=== PATIENT | male | born 2000 | race Caucasian/White ===

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

== ENCOUNTER 2021-09-14 13:04 | Outpatient (CLI) | payer OTHER, SELFPAY ==
--- NOTE | ~2021-09-14 | MMUS_ITS ---
EXAMINATION: MM diagnostic mammo unilat LT, US breast LT limited HISTORY: Asymmetric left medial breast development. Left breast lump behind the nipple. TECHNIQUE: Digital diagnostic left mammogram. Comparison right MLO view performed. High resolution Li mited left breast ultrasound was performed. COMPARISON: None BREAST PARENCHYMAL COMPOSITION: Breast composed of scattered areas of fibroglandular density FINDINGS: MAMMOGRAPHIC FINDINGS: There is bilateral asymmetric gynecomastia. No suspicious masses, calcifications or architectural dis tortion in either breast to suggest malignancy. ULTRASOUND: Limited left breast ultrasound: There is a hypoechoic subareolar left breast bud, compatible with mannequin mold maker ecomastia. No suspicious masses to suggest malignancy. IMPRESSION: 1. No evidence for left breast malignancy. Benign bilateral asymmetric gynecomastia. Recommend follow -up clinical management for gynecomastia. BI-RADS CATEGORY 2 - BENIGN FINDINGS Reviewed, dictated and finalized at location A. MEAT CHEF IMPRESSION: 1. No evidence for left breast malignancy. Benign bilateral asymmetric gynecoma stia. Recommend follow-up clinical management for gynecomastia. BI-RADS CATEGORY 2 - BENIGN FINDINGS
== END 2021-09-14 13:05 | disposition home or self-care (01) ==
PROVIDERS: PCP Pediatrics; Visit Provider Pediatrics
DX: N62 Hypertrophy of breast (principal)
CPT/HCPCS: 76642; 77065

== ENCOUNTER 2022-12-01 18:53 | Emergency (ER) | payer OTHER, SELFPAY ==
--- NOTE | ~2022-12-01 | XR_ITS ---
EXAMINATION: XR ankle RT min 3V INDICATION: Right ankle pain TECHNIQUE: Four views of the right ankle are obtained. COMPARISON: None available FINDINGS: No fracture, dislocation, or subluxation. The bones and joint spaces are normal. There is l ateral ankle soft tissue swelling. IMPRESSION: 1. No acute osseous abnormality. Reviewed, dictated and finalized at location F.
--- NOTE | ~2022-12-01 | XR_ITS ---
EXAMINATION: XR foot RT min 3V DATE: 12/01/2022 19:28 INDICATION: Right foot pain TECHNIQUE: Dorsoplantar, lateral, and 2 oblique views of the right foot were obtained. COMPARISON: None. FINDINGS: Bone alignment is normal. There is no fracture. There is lateral soft tissue swelling of an kle and foot. IMPRESSION: 1. No acute osseous abnormality. Reviewed, dictated and finalized at location F.
[2022-12-01 19:06] VITALS: BP 134/67; PULSE 117; RESP 16; TEMP 37.5; O2SAT 98
--- NOTE | 2022-12-01 19:16 | ED.LOWEXIN ---
HPI - Extremity Injury (Lower) General Chief Complaint: Extremity Injury, Lower Stated Complaint: INJURED ANKLE Source: patient, family and RN notes reviewed History of Present Illness HPI Narrative: 22-year-old male presents to urgent care with mom at side. Patient states prior to arrival he was playing basketball when he jumped up and came down, landing on another person's foot. Patient believes he rolled his right ankle and heard a pop at that time. Patient also states when he fell backwards he heard a pop again. Pt presents with right lateral and anterior ankle pain. Denies any other injuries including head injury or LOC. denies any numbness or tingling. Some parts of this dictation were generated by voice recognition software and may contain typographical and/or grammatical inaccuracies. Related Data Home Medications Medication Instructions Recorded Confirmed No Home Medications 12/20/20 12/20/20 Allergies Allergy/AdvReac Type Severity Reaction Status Date / Time No Known Allergies Allergy Verified 12/01/22 19:17 Review of Systems Review of Systems: CONSTITUTIONAL: Denies fever, chills, or sweats. EYES: Denies visual changes, redness, or discharge. ENT: Denies otalgia and sore throat CARDIOVASCULAR: Denies chest pain, palpitations, or edema. RESPIRATORY: Denies cough or dyspnea. GASTROINTESTINAL: Denies abdominal pain, nausea, vomiting, or diarrhea. GENITOURINARY: Denies dysuria or hematuria. SKIN: Denies rash or itching. MUSCULOSKELETAL: Right ankle pain and swelling NEUROLOGIC: Denies headache, numbness, or weakness. Pertinent positives per HPI. PMFSH Social History Social History (Updated 06/16/21 @ 08:23 by Citlaly Bello MA) Smoking status: Never smoker Alcohol intake: never Substance use: never Comments At the time of my signature, I reviewed and agree with the nursing past medical, surgical, social, and family history. There is no relevant family history pertinent to the patient complaint. Exam Narrative: GENERAL: This is a well-nourished, well-developed patient, in no apparent distress. HEAD: normocephalic, atraumatic. EYES: Sclera clear/white. Vision is grossly intact. EARS: External ears normal, auditory canals clear and without drainage. Hearing grossly intact. CARDIOVASCULAR: Regular rate RESPIRATORY: No respiratory distress SKIN: warm, intact with no suspicious lesions or rash, good texture and turgor. NEURO: awake, alert, and oriented to person, place and time. There were no obvious focal neurologic abnormalities. EXTREMITIES: Right lateral ankle swelling and tenderness. Slight tenderness to anterior ankle. Course Course Level of Care: Express Care Visit Vital Signs Vital signs: Vital Signs Temperature 99.5 F 12/01/22 19:06 Pulse Rate 117 H 12/01/22 19:06 Respiratory Rate 16 12/01/22 19:06 Blood Pressure 134/67 12/01/22 19:06 Pulse Oximetry 98 12/01/22 19:06 Oxygen Delivery Room Air 12/01/22 19:06 Temperature 99.5 F 12/01/22 19:06 Pulse Rate 117 H 12/01/22 19:06 Respiratory Rate 16 12/01/22 19:06 Blood Pressure 134/67 12/01/22 19:06 Pulse Oximetry 98 12/01/22 19:06 Oxygen Delivery Room Air 12/01/22 19:06 Reviewed. MDM - Extremity Injury (Lower) MDM Narrative Medical decision making narrative: Use the RICE method at home. May take ibuprofen and/or Tylenol if needed. If symptoms persist in 1 week after conservative treatment, follow-up with the orthopedist. Differential Diagnosis Differential diagnosis: Likely ankle sprain and strain, ankle fracture and other ( dislocation) Imaging Data Radiologist's impression: [facility] [place] [address] XRay Report Signed Patient: Percy Gamboa : 2000 MR#: [id number] Age/Sex: 22 / M Acct:[id number] Loc: [facility]? ? ADM Date: 12/01/22Attending Dr: Ordering Physician: Wes
== END 2022-12-01 19:50 | disposition home or self-care (01) ==
PROVIDERS: Emergency Provider Nurse Practitioner Family; PCP Nurse Practitioner Family
DX: S93.401A Sprain of unspecified ligament of right ankle, initial encounter (principal); S96.911A Strain of unspecified muscle and tendon at ankle and foot level, right foot, initial encounter; W03.XXXA Other fall on same level due to collision with another person, initial encounter; Y93.67 Activity, basketball
CPT/HCPCS: 73610; 73630; 99214; G0463